=== PATIENT | male | born 1950 | race Caucasian/White ===

== ENCOUNTER 2024-07-09 15:09 | Emergency (ER) | payer MEDICARE, BC | END 2024-07-09 16:32 | disposition home or self-care (01) | LOC: JP.ED 15:09 | DX: R60.0 Localized edema (principal); K21.9 Gastro-esophageal reflux disease without esophagitis; Z90.49 Acquired absence of other specified parts of digestive tract; Z79.899 Other long term (current) drug therapy | CPT/HCPCS: 99283 ==